=== PATIENT | female | born 1985 | race Caucasian/White ===

== ENCOUNTER 2017-06-07 13:15 | Emergency (ER) | payer OTHER ==
[~2017-06-07] VITALS: Ht 167.6 cm; Wt 102.2 kg
[~2017-06-07 13:15] MED LIST: ADVIL,NUPRIN,M200 MG PO; ATARAX,VISTARIL25 MG PO; ENDOCET 5-3251 EACH PO; IBUPROFEN800 MG PO; NOR-Q-D0.35 MG PO; PRENATAL FORMU1 EAC3 PO; PROCTOFOAM-HC10 GM PR; SYNTHROID137 MCG PO
[2017-06-07 15:19] LABS: EOSINOPHIL (%) 0 % (0-5); HEMATOCRIT 38.7 % (36.0-46.0); IMMATURE GRANULOCYTE (%) 0.6 % (0.0-0.7); IMMATURE GRANULOCYTE COUNT 0.1 K/uL; INSTRUMENT ABS NEUTROPHIL CT 12.4 K/uL; LYMPHOCYTE COUNT 1.1 K/uL (1.0-2.8); MCH 31.4 PG (29.0-34.0); MCHC 34.4 G/DL (30.0-36.0); MCV 91.5 FL (83-99); MEAN PLAT.VOLUME 9.9 uM^3 (9.5-12.4); MONOCYTE (%) 2.4 % (3-12); MONOCYTE COUNT 0.3 K/uL (0-0.8); NEUTROPHIL (%) 88.8 % (45-76); NEUTROPHIL COUNT 12.4 K/uL (1.8-6.4); PLATELET COUNT 315 K/uL (156-360); RBC DIS.WIDTH-CV 12.1 % (11.8-14.6); RBC DIS.WIDTH-SD 40.7 % (39-53); RED BLOOD COUNT 4.23 M/uL (3.80-5.20); WHITE BLOOD COUNT 13.9 K/uL (4.1-10.2)
[2017-06-07 15:23] LABS: INTER. NORMALIZED RATIO 1.1; PROTHROMBIN TIME 11.6 SEC (10.2-12.9)
[2017-06-07 15:26] LABS: PTT 28.5 SEC (25-37)
[2017-06-07 15:30] LABS: CHLORIDE 104 mEq/L (99-109); POTASSIUM 4.1 mEq/L (3.7-5.4); SODIUM 138 mEq/L (136-147)
[2017-06-07 15:32] LABS: GLUCOSE 112 mg/dL (70-99)
[2017-06-07 15:33] LABS: ANION GAP 15 MEQ/L (2-14)
[2017-06-07 15:36] LABS: GFR ESTIMATE (CALCULATED) > 59 mL/min/
[2017-06-07 15:37] LABS: UREA NITROGEN (BUN) 11 mg/dL (9-23)
[2017-06-07 22:00] VITALS: BP 129/91
[2017-06-08] MEDS ORDERED: SERTRALINE HCL50 MG PO (21:17)
[2017-06-08] MEDS ORDERED: LEVOTHYROXINE150 MCG PO (21:19)
[2017-06-08] MEDS ORDERED: ENOXAPARIN40 MG/0.4 SC (21:23)
[2017-06-08] MEDS ORDERED: PREDNISONE20 MG PO (21:24)
[2017-06-08] MEDS ORDERED: PROGESTERONE200 MG PO (21:26)
[2017-06-08] MEDS ORDERED: CABERGOLINE0.5 MG PO (21:29)
[2017-06-08] MEDS ORDERED: VITAMIN D2000 UNI1 PO (21:30)
[2017-06-08] MEDS ORDERED: SYNTHROID150 MCG PO (21:32)
[2017-06-08] MEDS ORDERED: METHYLERGO0.2 MG/1 M PO (22:46)
[2017-06-08] MEDS ORDERED: DOXYCYCLINE HY100 M3 PO (22:46)
[2017-06-08] MEDS ORDERED: IBUPROFEN800 MG PO (22:46)
== END 2017-06-07 22:03 | disposition home or self-care (01) ==
LOC: EME 13:15
PROVIDERS: Emergency Medicine
DX: O03.4 Incomplete spontaneous abortion without complication (principal); E05.90 Thyrotoxicosis, unspecified without thyrotoxic crisis or storm; Z88.0 Allergy status to penicillin
CPT/HCPCS: 76801; 80048; 83605; 84702; 85025; 85610; 85730; 86850; 86900; 86901; 99281; 99285; J2270; J7030

== ENCOUNTER 2017-06-08 15:28 | Day surgery (SDC) | payer OTHER ==
[~2017-06-08] VITALS: Ht 167.6 cm; Wt 109.5 kg
[2017-06-08 16:47] LABS: CHLORIDE 105 mEq/L (99-109); POTASSIUM 3.9 mEq/L (3.7-5.4); SODIUM 136 mEq/L (136-147)
[2017-06-08 16:49] LABS: GLUCOSE 146 mg/dL (70-99)
[2017-06-08 16:50] LABS: ANION GAP 11 MEQ/L (2-14); HEMATOCRIT 31.8 % (36.0-46.0); MCH 31.6 PG (29.0-34.0); MCHC 34.6 G/DL (30.0-36.0); MCV 91.4 FL (83-99); PLATELET COUNT 332 K/uL (156-360); RBC DIS.WIDTH-CV 12.4 % (11.8-14.6); RBC DIS.WIDTH-SD 41.2 % (39-53); RED BLOOD COUNT 3.48 M/uL (3.80-5.20); WHITE BLOOD COUNT 15.3 K/uL (4.1-10.2)
[2017-06-08 16:51] LABS: TOTAL BILIRUBIN 0.3 mg/dL (0.0-1.0)
[2017-06-08 16:52] LABS: ALKALINE PHOSPHATASE 88 IU/L (3-129)
[2017-06-08 16:53] LABS: GFR ESTIMATE (CALCULATED) > 59 mL/min/
[2017-06-08 16:54] LABS: UREA NITROGEN (BUN) 13 mg/dL (9-23)
[2017-06-08 17:04] LABS: INTER. NORMALIZED RATIO 1.1
[2017-06-08 20:07] LABS: HEMATOCRIT 27.1 % (36.0-46.0); MCV 93.1 FL (83-99)
[2017-06-08] MEDS ORDERED: SERTRALINE HCL50 MG PO (21:17)
[2017-06-08] MEDS ORDERED: LEVOTHYROXINE150 MCG PO (21:19)
[2017-06-08] MEDS ORDERED: ENOXAPARIN40 MG/0.4 SC (21:23)
[2017-06-08] MEDS ORDERED: PREDNISONE20 MG PO (21:24)
[2017-06-08] MEDS ORDERED: PROGESTERONE200 MG PO (21:26)
[2017-06-08] MEDS ORDERED: CABERGOLINE0.5 MG PO (21:29)
[2017-06-08] MEDS ORDERED: VITAMIN D2000 UNI1 PO (21:30)
[2017-06-08] MEDS ORDERED: SYNTHROID150 MCG PO (21:32)
[2017-06-08] MEDS ORDERED: METHYLERGO0.2 MG/1 M PO (22:46)
[2017-06-08] MEDS ORDERED: IBUPROFEN800 MG PO (22:46)
[2017-06-08] MEDS ORDERED: DOXYCYCLINE HY100 M3 PO (22:46)
[2017-06-09 00:13] VITALS: BP 116/73
[2017-06-09 04:00] VITALS: BP 113/62
[2017-06-09 06:02] LABS: HEMATOCRIT 25.1 % (36.0-46.0); MCV 94.7 FL (83-99)
[2017-06-09 07:45] VITALS: BP 103/53
== END 2017-06-09 09:51 | disposition home or self-care (01) ==
LOC: EME 15:28 → SDC 22:20 → 2SOUTH 22:24 → 2EASTP 22:24 → ENRESERV 23:01 → 2EASTP 06-09 00:02
PROVIDERS: Emergency Medicine; Obstetrics & Gynecology
PROC: 10D17ZZ Extraction of Products of Conception, Retained, Via Natural or Artificial Opening (ICD-10-PCS; principal; 2017-06-08)
DX: O03.4 Incomplete spontaneous abortion without complication (principal); Z88.0 Allergy status to penicillin
CPT/HCPCS: 76801; 80053; 85014; 85018; 85027; 85610; 85730; 86850; 86900; 86901; 88305; 99281; 99285; G0378; J0330; J1170; J1885; J2210; J2250; J2270; J2590; J3010; J7030